=== PATIENT | female | born 1980 | race Caucasian/White ===

== ENCOUNTER 2016-12-10 20:56 | Emergency (ER) | payer OTHER | END 2016-12-11 03:15 | disposition home or self-care (01) | LOC: ER1 20:56 | DX: M62.838 Other muscle spasm (principal) | CPT/HCPCS: 72125; 81001; 84703; 87086; 96372; 99284; J2270; J2550 ==

== ENCOUNTER 2021-04-07 14:29 | Emergency (ER) | payer OTHER ==
[~2021-04-07] VITALS: Ht 160 cm; Wt 86.2 kg
== END 2021-04-07 17:30 | disposition home or self-care (01) ==
LOC: ER1 14:29
DX: Z23 Encounter for immunization (principal); U07.1 COVID-19; Z90.49 Acquired absence of other specified parts of digestive tract; Z87.891 Personal history of nicotine dependence
CPT/HCPCS: 99283; M0243

== ENCOUNTER → 2021-07-23 | Outpatient (CLI) | payer OTHER | LOC: EMI 07-17 16:45 | DX: M51.36 Other intervertebral disc degeneration, lumbar region (principal); M50.30 Other cervical disc degeneration, unspecified cervical region; M50.822 Other cervical disc disorders at C5-C6 level | CPT/HCPCS: 72141; 72148 ==

== ENCOUNTER → 2021-08-31 | Day surgery (SDC) | payer OTHER ==
[~2021-08-31] MED LIST: ADIPEX-P37.5 MG PO; BOTOX200 UNIT INJ; GABAPENTIN800 MG PO; IBUPROFEN800 MG PO; LEVOTHYROXINE100 MC2 PO; PROMETHAZINE HC25 M1 PO; PROTONIX40 MG PO; QULIPTA60 MG PO; RIZATRIPTAN10 M1 PO; TOPAMAX 100 MG100 MG PO; VITAMIN B-121000 MC3 INJ; VITAMIN D3125 MCG PO; ZOFRAN ODT 4 MG4 MG GT
== END | disposition home or self-care (01) ==
LOC: OR 06:27
DX: K29.70 Gastritis, unspecified, without bleeding (principal); K62.5 Hemorrhage of anus and rectum; K21.9 Gastro-esophageal reflux disease without esophagitis; E03.9 Hypothyroidism, unspecified; E55.9 Vitamin D deficiency, unspecified; D51.9 Vitamin B12 deficiency anemia, unspecified; F32.A Depression, unspecified; M79.7 Fibromyalgia; F17.200 Nicotine dependence, unspecified, uncomplicated; Z88.8 Allergy status to other drugs, medicaments and biological substances; Z79.1 Long term (current) use of non-steroidal anti-inflammatories (NSAID); Z79.899 Other long term (current) drug therapy; Z82.49 Family history of ischemic heart disease and other diseases of the circulatory system
CPT/HCPCS: 71045; 84703; J2001; J2405; J2704; J7120

== ENCOUNTER 2022-03-17 22:55 | Observation (INO) | payer OTHER ==
[~2022-03-17] VITALS: Ht 157.5 cm; Wt 78.0 kg
[~2022-03-17 22:55] MED LIST changes: -LEVOTHYROXINE100 MC2 PO; +LEVOTHYROXINE100 MCG PO; +ONDANSETRON ODT8 MG PO; -ZOFRAN ODT 4 MG4 MG GT
[2022-03-17 23:19] LABS: HEMOGLOBIN 13.6 gm/dl (12.3-15.3); RED BLOOD COUNT 4.35 M/UL (4.00-5.10); WHITE BLOOD COUNT 9.7 K/UL (4.5-11.0)
[2022-03-18 00:02] LABS: BUN/CREATININE RATIO 13 (0-10)
[2022-03-18 08:47] LABS: BUN/CREATININE RATIO 14 (0-10)
[2022-03-18] MEDS ORDERED: POTASSIUM CHLO20 ME2 PO (12:23)
[2022-03-18] MEDS ORDERED: PROPRANOLOL HCL40 MG PO (12:23)
[2022-03-18] MEDS ORDERED: VITAMIN D3125 MC1 PO (12:24)
[2022-03-18 22:34] LABS: BUN/CREATININE RATIO 14 (0-10)
[2022-03-19 06:24] LABS: HEMOGLOBIN 12.8 gm/dl (12.3-15.3); RED BLOOD COUNT 4.11 M/UL (4.00-5.10)
[2022-03-19 06:28] LABS: WHITE BLOOD COUNT 6.6 K/UL (4.5-11.0)
[2022-03-19 06:50] LABS: BUN/CREATININE RATIO 19 (0-10)
[2022-03-19 13:37] LABS: BUN/CREATININE RATIO 21 (0-10)
[2022-03-19] MEDS ORDERED: LEVOTHYROXINE88 MCG PO (14:17)
[2022-03-19] MEDS ORDERED: ASPIRIN EC81 MG PO (14:17)
[2022-03-19] MEDS ORDERED: ATORVASTATIN CA20 MG PO (14:17)
[2022-03-19] MEDS ORDERED: POTASSIUM CHLO20 ME2 PO (14:17)
[2022-03-19] MEDS ORDERED: ISOSORBIDE MONO30 MG PO (14:17)
[2022-03-20 10:14] LABS: CREATININE, URINE 315.5 mg/dL (Not Estab.)
[2022-03-22 16:11] LABS: OSMOLALITY, URINE 904 (.)
== END 2022-03-19 15:40 | disposition home or self-care (01) ==
LOC: ER1 22:55 → CDU 03-18 01:26 → MED SURG 4 03-18 01:26
PROVIDERS: Family Medicine; Internal Medicine; Internal Medicine Nephrology; ADMIT Internal Medicine
DX: R07.89 Other chest pain (principal); E87.6 Hypokalemia; E87.3 Alkalosis; E03.9 Hypothyroidism, unspecified; K21.9 Gastro-esophageal reflux disease without esophagitis; I10 Essential (primary) hypertension; G43.909 Migraine, unspecified, not intractable, without status migrainosus; Z98.1 Arthrodesis status; Z87.891 Personal history of nicotine dependence; Z91.041 Radiographic dye allergy status; Z79.899 Other long term (current) drug therapy
CPT/HCPCS: ECHO; 36415; 71045; 80048; 80053; 80061; 81001; 82043; 82088; 82436; 82533; 82550; 82553; 82570; 82607; 82803; 83036; 83735; 83880; 83930; 83935; 84133; 84156; 84244; 84300; 84439; 84443; 84484; 85025; 93005; 93017; 93306; 96372; 96374; 99285; G0378; J1650; J2405; J3480

== ENCOUNTER 2022-03-21 17:48 | Emergency (ER) | payer BC, OTHER ==
[~2022-03-21 17:48] MED LIST changes: +ASPIRIN EC81 MG PO; +ATORVASTATIN CA20 MG PO; +ISOSORBIDE MONO30 MG PO; +LEVOTHYROXINE88 MCG PO; +POTASSIUM CHLO20 ME2 PO; +PROPRANOLOL HCL40 MG PO; +VITAMIN D3125 MC1 PO
[2022-03-21 19:47] LABS: HEMOGLOBIN 12.5 gm/dl (12.3-15.3); RED BLOOD COUNT 4.05 M/UL (4.00-5.10)
[2022-03-21 20:08] LABS: BUN/CREATININE RATIO 14 (0-10)
[2022-03-21] MEDS ORDERED: OMNICEF 300 MG300 MG PO (23:06)
== END 2022-03-21 23:25 | disposition home or self-care (01) ==
LOC: ER1 17:48
PROVIDERS: Physician Assistant Medical
DX: N39.0 Urinary tract infection, site not specified (principal); E87.6 Hypokalemia; K21.9 Gastro-esophageal reflux disease without esophagitis; E03.9 Hypothyroidism, unspecified; Z91.041 Radiographic dye allergy status
CPT/HCPCS: 80053; 81001; 82550; 82553; 84439; 84443; 84484; 85025; 93005; 96374; 96375; 99284; J0696; J1885; J2765; J3475

== ENCOUNTER → 2022-03-23 | Outpatient (CLI) | payer OTHER ==
[~2022-03-23] MED LIST changes: +OMNICEF 300 MG300 MG PO
[2022-03-23 19:18] LABS: BUN/CREATININE RATIO 13 (0-10)
== END ==
LOC: LAB 17:39
PROVIDERS: Internal Medicine
DX: E87.6 Hypokalemia (principal); E03.9 Hypothyroidism, unspecified
CPT/HCPCS: 80048; 84436; 84439; 84443

== ENCOUNTER 2022-03-28 18:49 | Emergency (ER) | payer OTHER ==
[2022-03-28 19:50] LABS: HEMOGLOBIN 13.6 gm/dl (12.3-15.3); RED BLOOD COUNT 4.32 M/UL (4.00-5.10); WHITE BLOOD COUNT 10.8 K/UL (4.5-11.0)
[2022-03-28 20:10] LABS: BUN/CREATININE RATIO 16 (0-10)
== END 2022-03-28 22:09 | disposition home or self-care (01) ==
LOC: ER1 18:49
PROVIDERS: Physician Assistant
DX: E87.6 Hypokalemia (principal); Z91.041 Radiographic dye allergy status
CPT/HCPCS: 71045; 80053; 81001; 82550; 82553; 83735; 83880; 84484; 84703; 85025; 85610; 85730; 87086; 93005; 99284